=== PATIENT | male | born 2000 | race African-American/Black ===

== ENCOUNTER 2021-09-15 16:02 | Emergency (ER) | payer SELFPAY ==
[~2021-09-15] VITALS: Ht 185.4 cm; Wt 59.9 kg
[2021-09-15 19:46] VITALS: BP 110/69
== END 2021-09-15 19:48 | disposition home or self-care (01) ==
LOC: ER 16:02
DX: M25.471 Effusion, right ankle (principal)
CPT/HCPCS: 73630